=== PATIENT | female | born 1995 | race Caucasian/White ===

== ENCOUNTER 2017-11-20 20:44 | Emergency (ER) | payer MEDICAID ==
[~2017-11-20] VITALS: Ht 160 cm; Wt 53.5 kg
[2017-11-20 21:56] LABS: Albumin 3.5 g/dL (3.4-5.0); BUN/Creatinine Ratio 11.9; Calcium 8.4 mg/dL (8.5-10.1)
[2017-11-20 21:59] LABS: Bilirubin, Total 0.3 mg/dL (0.2-1.0); Total Protein 7.3 g/dL (6.4-8.2)
[2017-11-20 22:11] LABS: Urine Bacteria NONE SEEN /hpf (None Seen); Urine Blood Negative /uL (Negative); Urine Specific Gravity 1.023 (1.001-1.035); Urine WBC 15 /hpf (0 - 5)
[2017-11-20 22:29] LABS: Basophils # (auto) 0 uL; Basophils % (auto) 0.4 % (0.0-2.0); Eosinophils # (auto) 0.1 uL; Eosinophils % (auto) 1.5 % (0.0-7.0); Hematocrit 35.3 % (36.0-46.0); Hemoglobin 11.5 g/dL (12.2-16.2); Lymphocytes # (auto) 1.6 uL; Lymphocytes % (auto) 33.6 % (10.0-50.0); Mean Corpuscular Hemoglobin 27.8 pg (28.0-32.0); Mean Corpuscular Hgb Conc. 32.6 g/dL (32.0-36.0); Mean Corpuscular Volume 85.2 fL (80.0-100.0); Monocytes # (auto) 0.6 uL; Monocytes % (auto) 12.4 % (0.0-12.0); Neutrophils # (auto) 2.5 uL; Neutrophils % (auto) 52.1 % (37.0-80.0); Nucleated Red Blood Cells % 0.1 %; Platelet Count (auto) 357 10^3/uL (140-450); Red Blood Cells 4.15 10^6/uL (4.0-5.20); Red Cell Distribution Width 15.1 % (11.8-14.3); White Blood Cell 4.9 10^3/uL (4.4-10.8)
[2017-11-21 00:32] VITALS: BP 125/79
== END 2017-11-21 01:33 | disposition home or self-care (01) ==
LOC: ER 20:44
DX: R10.9 Unspecified abdominal pain (principal); I88.0 Nonspecific mesenteric lymphadenitis
CPT/HCPCS: 36415; 74176; 80053; 81001; 81025; 85025

== ENCOUNTER 2019-04-20 15:08 | Emergency (ER) | payer MEDICAID ==
[~2019-04-20] VITALS: Ht 162.6 cm; Wt 56.2 kg
[2019-04-20 16:01] LABS: Urine Bacteria NONE SEEN /hpf (None Seen); Urine Blood 2+ /uL (Negative); Urine Specific Gravity 1.023 (1.001-1.035); Urine WBC 5 /hpf (0 - 5)
[2019-04-20 16:02] LABS: Basophils # (auto) 0 uL; Eosinophils # (auto) 0 uL; Monocytes # (auto) 0.3 uL; Nucleated Red Blood Cells % 0.1 %; White Blood Cell 3.4 10^3/uL (4.4-10.8)
[2019-04-20 16:04] LABS: Basophils % (auto) 0.4 % (0.0-2.0); Eosinophils % (auto) 0.7 % (0.0-7.0); Hemoglobin 11.8 g/dL (12.2-16.2); Lymphocytes # (auto) 1.5 uL; Lymphocytes % (auto) 42.7 % (10.0-50.0); Mean Corpuscular Hemoglobin 26.7 pg (28.0-32.0); Mean Corpuscular Hgb Conc. 32.7 g/dL (32.0-36.0); Mean Corpuscular Volume 81.7 fL (80.0-100.0); Monocytes % (auto) 8.3 % (0.0-12.0); Neutrophils # (auto) 1.6 uL; Neutrophils % (auto) 47.9 % (37.0-80.0); Platelet Count (auto) 344 10^3/uL (140-450); Red Cell Distribution Width 15.4 % (11.8-14.3)
[2019-04-20 16:14] LABS: Potassium 3.8 mmol/L (3.5-5.1)
[2019-04-20 16:23] LABS: Albumin 3.7 g/dL (3.4-5.0); BUN/Creatinine Ratio 12.7; Bilirubin, Total 0.2 mg/dL (0.2-1.0); Calcium 8.4 mg/dL (8.5-10.1)
[2019-04-20] MEDS ORDERED: SODIUM CHLORIDE 0.9% 1,000 ML IV ONE (17:05)
[2019-04-20] MEDS ORDERED: KETOROLAC TROMETH 60MG/2ML VIAL ONE (18:14)
[2019-04-20] MEDS ORDERED: KETOROLAC TROMETH 15 mg/ml 1ML VL IV ONE (18:15)
[2019-04-20 18:16] VITALS: BP 132/69
== END 2019-04-20 18:30 | disposition home or self-care (01) ==
LOC: ER 15:08
DX: R10.9 Unspecified abdominal pain (principal); E86.0 Dehydration
CPT/HCPCS: 36415; 74176; 80053; 81001; 84702; 85025; 96361; 96374; 99284; J1885; J7030